=== PATIENT | female | born 1980 | race Two or more races ===

== ENCOUNTER 2019-04-14 09:41 | Outpatient (CLI) | payer OTHER | END 2019-04-14 11:09 | disposition home or self-care (01) | LOC: NST 09:41 | DX: Z34.83 Encounter for supervision of other normal pregnancy, third trimester (principal) ==

== ENCOUNTER 2019-05-05 17:19 | Outpatient (CLI) | payer OTHER | END 2019-05-05 19:10 | disposition home or self-care (01) | LOC: NST 17:19 | DX: Z34.83 Encounter for supervision of other normal pregnancy, third trimester (principal) ==

== ENCOUNTER 2019-05-12 11:44 | Inpatient (IN) | payer OTHER ==
[~2019-05-12] VITALS: Ht 162.6 cm; Wt 72.6 kg
[2019-05-12] MEDS ORDERED: PRENATAL TABLE1 EAC1 PO (13:01)
[2019-05-12] MEDS ORDERED: IRON325 MG PO (13:02)
== END 2019-05-16 12:48 | disposition home or self-care (01) | DRG 786 ==
LOC: NST 11:44 → LDR 12:02 → OB/GYN 05-13 18:04 → O/R 05-13 19:49 → LDR 05-13 23:10 → OB/GYN 05-14 12:10
PROVIDERS: ADMIT Obstetrics & Gynecology
PROC: 3E0P7VZ Introduction of Hormone into Female Reproductive, Via Natural or Artificial Opening (ICD-10-PCS; 2019-05-12)
PROC: 4A1HXCZ Monitoring of Products of Conception, Cardiac Rate, External Approach (ICD-10-PCS; 2019-05-12)
PROC: 3E033VJ Introduction of Other Hormone into Peripheral Vein, Percutaneous Approach (ICD-10-PCS; 2019-05-13)
PROC: 10D00Z1 Extraction of Products of Conception, Low, Open Approach (ICD-10-PCS; principal; 2019-05-13 16:00)
DX: O82 Encounter for cesarean delivery without indication (principal); O60.14X0 Preterm labor third trimester with preterm delivery third trimester, not applicable or unspecified; O14.13 Severe pre-eclampsia, third trimester; O24.420 Gestational diabetes mellitus in childbirth, diet controlled; O61.0 Failed medical induction of labor; Z3A.36 36 weeks gestation of pregnancy; Z37.0 Single live birth